=== PATIENT | male | born 1985 | race African-American/Black ===

== ENCOUNTER 2016-12-18 03:08 | Emergency (ER) | payer OTHER ==
[~2016-12-18] VITALS: Ht 175.3 cm; Wt 86.2 kg
[2016-12-18] MEDS ORDERED: TDAP [DIPH/PERTUSSIS/TET] 0.5 ML VIAL IM ONE (03:30)
[2016-12-18] MEDS ORDERED: BACI/NEOM/POLY B OINT PKT 1 UDPKT PACKET TP ONE (03:30)
[2016-12-18] MEDS ORDERED: HALOPERIDOL LACTATE INJ 5 MG/ML VIAL ONE (03:36)
[2016-12-18 05:07] VITALS: BP 145/79
== END 2016-12-18 04:15 ==
LOC: EDBD 03:10 → ER 03:10
DX: S80.212A Abrasion, left knee, initial encounter (principal); F10.129 Alcohol abuse with intoxication, unspecified; X58.XXXA Exposure to other specified factors, initial encounter; Y93.9 Activity, unspecified; Y92.9 Unspecified place or not applicable; Y99.9 Unspecified external cause status
CPT/HCPCS: 99283; A4606; Z7610; J1630